=== PATIENT | female | born 1995 | race African-American/Black ===

== ENCOUNTER 2017-02-01 23:18 | Emergency (ER) | payer MEDICAID ==
[~2017-02-01] VITALS: Ht 175.3 cm; Wt 71.2 kg
[2017-02-01] MEDS ORDERED: DiphenhydrAMINE 50mg/ml Inj IM ONE (23:30)
[2017-02-01] MEDS ORDERED: Haloperidol 5mg/ml Inj IM ONE (23:30)
[2017-02-01] MEDS ORDERED: LORazepam Inj 2mg/ml 1ml IM ONE (23:30)
[2017-02-02 00:30] VITALS: BP 133/54
--- NOTE | 2017-02-02 02:36 | Emergency Room Report ---
History of Present Illness General Chief Complaint: Altered Level of Consciousness Source: Patient Present Illness HPI 21YOF BIBEMS with [employer] after neighbors called 911 for arguing and fighting heard next door EMS had to break down door to apt Patient was naked, combative, ?meth use. Intermittent "fake seizures" - whole body shaking, then would walk around without post-ictal period Patient not providing HPI - screaming repeatedly in the ED, swinging at staff. Allergies: Coded Allergies: No Known Allergies (Unverified , 02/01/17) Patient History Limited by: medical condition Past Medical History: unable to obtain Past Surgical History: unable to obtain Pertinent Family History: unable to obtain Social History: Reports: drug use Last Menstrual Period: unk Reviewed Nursing Documentation: PMH: Agreed, PSxH: Agreed Review of Systems All Other Systems: limited - AMS Physical Exam Vital Signs Date Time Temp Pulse Resp B/P (MAP) Pulse Ox O2 Delivery O2 Flow Rate FiO2 02/01/17 23:21 99.1 162 17 139/55 99 Room Air Sp02 EP Interpretation: reviewed, normal General Appearance: normal inspection, well appearing, no apparent distress, alert, GCS 15, non-toxic, other - Combative Head: normocephalic, atraumatic Eyes: bilateral eye PERRL, bilateral eye EOMI ENT: normal ENT inspection, hearing grossly normal, normal voice Neck: normal inspection, full range of motion, supple, no bony tend Respiratory: normal inspection, lungs clear, normal breath sounds, no respiratory distress, no retraction, no wheezing Cardiovascular #1: regular rate, rhythm, no edema Gastrointestinal: normal inspection, normal bowel sounds, non tender, soft, no guarding, no hernia Genitourinary: no CVA tenderness Musculoskeletal: normal inspection, back normal, normal range of motion, Jayden' s Sign negative Neurologic: normal inspection, alert, oriented x3, responsive, national insurance officer III-XII nml as tested, motor strength/tone normal, speech normal Psychiatric: normal inspection, judgement/insight normal, mood/affect normal Skin: normal inspection, normal color, no rash Medical Decision Making Diagnostic Impression: Primary Impression: Altered level of consciousness Additional Impressions: Marijuana abuse Combative behavior ER Course Combative behavior, AMS VSS. Afebrile Utox + for MJ Was given sedation for staff protection Signed out to incoming doctor to evaluate for discharge upon sobriety Last Vital Signs Date Time Temp Pulse Resp B/P (MAP) Pulse Ox O2 Delivery O2 Flow Rate FiO2 02/01/17 23:21 99.1 162 17 139/55 99 Room Air Status: improved Referrals: NOT CHOSEN IPA/,REFERRING (PCP) ESPERANZA SALGUERO M.D. Feb 02, 2017 02:36
[2017-02-02 03:30] VITALS: BP 132/53
[2017-02-02 05:41] VITALS: BP 129/52
[2017-02-02 07:30] VITALS: BP 128/91
[2017-02-02 07:51] VITALS: BP 128/91
== END 2017-02-02 07:51 | disposition home or self-care (01) ==
LOC: EDBD 23:18 → EMR 23:44 → EDBD 23:44 → EMR 02-02 07:51
DX: R41.82 Altered mental status, unspecified (principal); F12.10 Cannabis abuse, uncomplicated; F91.8 Other conduct disorders
CPT/HCPCS: 80300; 81025; 96372; 99283; J1200; J1630